=== PATIENT | female | born 1940 | race Caucasian/White ===

== ENCOUNTER → 2016-11-12 | Day surgery (SDC) | payer MEDICARE, MEDICAID ==
[~2016-11-12] VITALS: Ht 160 cm; Wt 80.0 kg
[~2016-11-12] MED LIST: 0.9% Sodium Chloride 1,000 ML IV PRN; ACET1TAB42 PO; AMLO10TA3 PO; FLUT9.9S NS; GABA-500 PO; HYDR12.55 PO; LOSA100T29 PO; NITR0.4T38 SL; NPR500T PO; Sodium Chloride LOK Flush 10 mL Syringe IV PRN; TR5C15 TOP; fentaNYL-PF 50 mCg/mL 2 mL Inj IVPUSH PRN
[2016-11-12 11:43] VITALS: BP 159/98; PULSE 81; RESP 20; O2SAT 97
[2016-11-12 13:15] VITALS: BP 150/82; PULSE 77; RESP 14; O2SAT 97
[2016-11-12 13:25] VITALS: BP 155/78; PULSE 67; RESP 14
--- NOTE | 2016-11-12 23:22 | ENDO ---
[address] [address] ENDOSCOPY PROCEDURE PATIENT: WILLIE CA : 1940 MR#: [id number] ADMIT: 11/12/2016 JOB ID: [id number] DATE OF SERVICE: 11/12/2016 PRIMARY PROVIDER: Jailyn Medina MD PROCEDURE: 1. Esophagogastroduodenoscopy with biopsy. 2. Colonoscopy. INDICATIONS: A 76-year-old female with intermittent epigastric pain and chronic constipation reporting for endoscopic interrogation. EQUIPMENT: PC FH 180 AL and a GIF H 180. SEDATION: 1. 4 mg Versed. 2. 100 mcg fentanyl. COMPLICATIONS: None identified. BOWEL PREPARATION: Fair, adequate exam. PROCEDURE INFORMATION: After the risks and benefits were explained, written and verbal informed consent was obtained. The patient was brought into the endoscopy suite and placed into the left lateral decubitus position. Sedation was achieved as above. The scope introduced into the mouth through the bite block and advanced to the second portion of the duodenum. The scope was slowly withdrawn to carefully examine the mucosa for any defects or lesions. Retroflexed views were accomplished in the stomach. The stomach was decompressed. Scope removed from the patient who tolerated the procedure well. The patient was then turned around. A digital rectal examination accomplished. No significant pathology appreciated. The scope was introduced into the rectum and advanced to the cecum as identified by the appendiceal orifice and ileocecal valve. The scope was slowly withdrawn to carefully examine the mucosa for any defects or lesions. Retroflexed views were avoided in the rectum. Multiple direct views were made through the dentate line for exclusion of pathology. The colon was decompressed. The scope removed from the patient who tolerated the procedure well. FINDINGS: 1. Duodenum: There were some erosions and some scattered erythematous areas from the bulb through to the second portion. Biopsies were taken from D2 for histologic evaluation. The patient had a mildly tortuous duodenal configuration, but otherwise no other significant mucosal pathology. 2. Stomach: The patient had a diffuse gastropathy with some healed erosive changes in the antrum. One of these was targeted for biopsy. Otherwise, no mass lesions. No outlet obstruction. Retroflexed views of the LES were unremarkable. 3. Esophagus: The squamocolumnar junction correlated with the top of the gastric folds. No acute erosive changes. No strictures. No mass lesions. GEJ was at 37 cm from the incisors. No other esophageal pathology appreciated. 4. Colon: No evidence of any macroscopic colitis. The ileal mucosa evaginated out into full view from the vantage point of the ileocecal valve. The mucosa appeared completely normal. Photographs were taken. I did not appreciate any significant polyps or mass lesions throughout. Mild internal hemorrhoids were noted on direct views. ENDOSCOPIC DIAGNOSES: 1. Gastroduodenopathy. 2. Otherwise visually unremarkable esophagogastroduodenoscopy. 3. Mild internal hemorrhoids. 4. Otherwise visually unremarkable colonoscopy to cecum. RECOMMENDATIONS: 1. Await histopathology. 2. If Helicobacter is found, it will need to be eradicated with standard triple therapy. 3. Minimize NSAID therapy. 4. Continue with fiber supplementation as recommended in clinic. 5. Follow up in GI clinic in the next four weeks or so with Shannon Ingram PA-C.
--- NOTE | 2016-11-13 17:40 | PATH ---
SURGICAL PATHOLOGY Attending Physician:Keon Hughes CASE STATUS: Signed Out PATIENT NAME: WILLIE CA PID: [id number] : 1940 DATE COLLECTED:11/12/2016 22:03 SPECIMEN: 1: Duodenum, Biopsy 2: Gastric, Biopsy CLINICAL HISTORY: 1). DUODENUM BIOPSY 2). GASTRIC BIOPSY, RULE OUT H.PYLORI FINAL DIAGNOSIS: 1.DUODENUM, BIOPSY: DUODENAL MUCOSA WITH NO DIAGNOSTIC ABNORMALITY. Negative for active inflammation, features of sprue, dysplasia, and malignancy. 2.STOMACH, BIOPSY: GASTRIC ANTRAL MUCOSA WITH CHRONIC HELICOBACTER GASTRITIS. HELICOBACTER ORGANISMS SEEN ON H&E STAIN. Negative for intestinal metaplasia. Negative for dysplasia and malignancy. ICD10 B96.81 GROSS DESCRIPTION: The specimen is received in two formalin filled containers labeled with the patient's name. 1). The specimen is labeled "duodenum" and consists of a 0.3 x 0.2 x 0.2 CM portion of tissue which is entirely submitted in cassette 1A. 2). The specimen is labeled "gastric" and consists of a 0.2 x 0.1 x 0.1 CM portion of tissue which is entirely submitted in cassette 2A. 11/12/2016DC MICRO DESCRIPTION: See diagnosis. ICD-9 CODES: CPT CODES: 1: 04967 2: 47027 Electronically Signed Out Johnathan Morris MD, Ph.D. [facility] [address] [facility], [place] [address] Technical component performed at [facility], [facility] [address], [address]
== END | disposition home or self-care (01) ==
LOC: END 00:30
PROVIDERS: ATTEND Internal Medicine Gastroenterology
DX: K59.00 Constipation, unspecified (principal); K64.8 Other hemorrhoids; K29.70 Gastritis, unspecified, without bleeding; B96.81 Helicobacter pylori [H. pylori] as the cause of diseases classified elsewhere; K31.9 Disease of stomach and duodenum, unspecified; I10 Essential (primary) hypertension; E78.5 Hyperlipidemia, unspecified; G43.909 Migraine, unspecified, not intractable, without status migrainosus; E03.9 Hypothyroidism, unspecified
CPT/HCPCS: 43239; 45378; 88305; 99153; G0500; J2250; J3010; J7030